=== PATIENT | female | born 1980 | race Caucasian/White ===

== ENCOUNTER 2024-12-03 18:07 | Inpatient (IN) | payer BC, OTHER ==
[~2024-12-03] VITALS: Ht 154.9 cm; Wt 79.3 kg
[2024-12-03] MEDS: HYDROcodone-ACET 7.5/325MG TAB PO ONE (18:30)
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
[2024-12-03 19:16] LABS: Hematocrit 44.0 % (36.0-46.0); Hemoglobin 14.8 g/dL (12.2-16.2); Mean Corpuscular Hemoglobin 28.8 pg (28.0-32.0); Mean Corpuscular Volume 85.5 fL (80.0-100.0); Nucleated Red Blood Cells % 0.0 %
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
[2024-12-03 19:32] LABS: INR 0.97 (0.9-1.15); Prothrombin Time 10.3 sec (9.3-11.8)
[2024-12-03 19:42] LABS: Alanine Aminotransferase 23 U/L (7-40); Albumin 4.3 g/dL (3.2-4.8); Alkaline Phosphatase 67 U/L (46-116); Anion Gap 7 (5-15); BUN/Creatinine Ratio 14.3 (10.0-20.0); Bilirubin, Total 0.3 mg/dL (0.2-1.0); Blood Urea Nitrogen 12 mg/dL (9-23); Calcium 9.1 mg/dL (8.7-10.4); Carbon Dioxide 30 mmol/L (20-31); Chloride 104 mmol/L (98-107); Glucose 122 mg/dL (74-106); Potassium 4.5 mmol/L (3.5-5.1); Sodium 141 mmol/L (136-145); Total Protein 5.8 g/dL (5.7-8.2)
[2024-12-03 23:30] VITALS: PULSE 104; RESP 17; O2SAT 100
[2024-12-04] VITALS (8 sets, daily range): BP systolic 113–157; BP diastolic 68–99; PULSE 72–89; RESP 12–17; TEMP 97.4–98.2; O2SAT 95–98
[2024-12-04] MEDS: fentaNYL CITRATE 100 MCG/2 ML VL IV ONE (00:44)
[2024-12-04] MEDS: SODIUM CHLORIDE 0.9% 1,000 ML IV ONE (00:45)
--- NOTE | 2024-12-04 01:25 | DVH ---
Exam: CT CHST AB PEL WO CON-NO IV/ORAL History: FALL BACK PAIN Comparison Study: None Technique: Multidetector spiral CT of the chest, abdomen and pelvis was performed from lower neck to pubic symphysis without contrast. Axial, coronal and sagittal multiplanar reformats were performed by the technologist on a separate workstation. Radiation Dose : 1. Chest/Abdomen/Pelvis: CTDIvol 21.3 mGy, DLP 6.4 mGy*cm. Findings: Assessment of the vasculature and viscera is limited by lack of IV contrast. Exam is firmer limited b y beam hardening and streak artifact from arms down positioning. Lower neck: Unremarkable. Lungs: No pulmonary contusion or laceration. Mild scarring/atelectasis of the lingula. Central airw ays are clear. Heart/Vascular Structures: No noncontrast evidence of injury. Normal heart size. Lymph Nodes: No obvious adenopathy. Pleura: No effusion or pneumothorax. Liver: Unremarkable. Gallbladder and Biliary Tree: Unremarkable Spleen: Unremarkable. Pancreas: Mild atrophy. Adrenal Glands: Unremarkable. Kidneys: No evidence of injury. Nonobstructing 2 mm stone in the left inferior collecting system. Bladder: No evidence of injury. Bowel: No wall thickening or obstruction. Appendectomy change. Paii-ba-giyeidrw colonic stool burden . Ascites: None. Lymphadenopathy: No obvious adenopathy. Abdominal Wall and Mesentery: No evidence of injury. Vasculature: No noncontrast evidence of injury. Pelvic Organs: Lobular appearance of the anterior uterus, suggesting fibroid or fibroids. Musculoskeletal: No acute fracture. Normal joint alignment. IMPRESSION: 1. No acute traumatic finding of the chest, abdomen, or pelvis within the exam limitations. 2. Nonobstructing left nephrolith. Other incidental findings above.
[2024-12-04] MEDS: KETOROLAC TROMETH 30 MG/ML 1ML VIAL IV ONE (07:56)
[2024-12-04] MEDS ORDERED: LISI-285 PO (09:00)
[2024-12-04] MEDS ORDERED: TRAZ-227 PO (09:00)
[2024-12-04] MEDS ORDERED: ACETAMINOPHEN 325 MG TAB PO PRN (09:00)
[2024-12-04] MEDS ORDERED: SERT-160 PO (09:00)
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
[2024-12-04] MEDS: LISINOPRIL 20 MG TAB PO SCH (11:02)
[2024-12-04] MEDS: hydroCHLOROthiazide 25 MG TAB PO SCH (11:03)
[2024-12-04] MEDS: SERTRALINE HCL 50 MG TAB PO SCH (11:03)
[2024-12-04] MEDS ORDERED: GAB100C PO (11:06)
[2024-12-04] MEDS: HYDROcodone-ACET 5/325MG TAB PO PRN (11:20)
[2024-12-04] MEDS ORDERED: BUPR-60 PO (17:52)
[2024-12-04] MEDS: SODIUM CHLORIDE 0.9% 500 ML IV ONE (21:01)
[2024-12-04] MEDS: DOCUSATE SOD 100 MG CAP PO PRN (21:57)
[2024-12-04] MEDS: GABAPENTIN 100 MG CAP PO SCH (21:57)
[2024-12-05] VITALS (8 sets, daily range): BP systolic 100–161; BP diastolic 58–116; PULSE 69–129; RESP 17–87; TEMP 98.3–98.6; O2SAT 95–98
[2024-12-05 07:01] LABS: Alanine Aminotransferase 16 U/L (7-40); Albumin 3.8 g/dL (3.2-4.8); Alkaline Phosphatase 61 U/L (46-116); Anion Gap 8 (5-15); BUN/Creatinine Ratio 12.0 (10.0-20.0); Blood Urea Nitrogen 9 mg/dL (9-23); Calcium 8.7 mg/dL (8.7-10.4); Carbon Dioxide 27 mmol/L (20-31); Glucose 97 mg/dL (74-106); Potassium 4.1 mmol/L (3.5-5.1); Sodium 142 mmol/L (136-145)
[2024-12-05 07:02] LABS: Bilirubin, Total 0.4 mg/dL (0.2-1.0)
[2024-12-05 07:04] LABS: Chloride 107 mmol/L (98-107); Total Protein 5.5 g/dL (5.7-8.2)
[2024-12-05] MEDS: ONDANSETRON HCL 4 MG/2 ML VIAL IV PRN (09:08)
[2024-12-05 09:25] LABS: Hematocrit 38.2 % (36.0-46.0); Hemoglobin 12.9 g/dL (12.2-16.2); Mean Corpuscular Hemoglobin 28.9 pg (28.0-32.0); Mean Corpuscular Volume 85.1 fL (80.0-100.0); Nucleated Red Blood Cells % 0.0 %
[2024-12-05] MEDS ORDERED: BUPROPION HCL 150 MG PO SCH (10:00)
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
[2024-12-05] MEDS: LORazepam 2MG/ML-1ML VIAL IV ONE ×2 (11:44→12:13)
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
--- NOTE | 2024-12-05 14:51 | DVHDS2 ---
Discharge Summary Date of Admission Dec 04, 2024 at 08:52 Date of Discharge: Dec 05, 2024 Labs/Diagnostic Data: Laboratory Results Test 12/05/24 08:54 12/05/24 05:14 12/03/24 19:03 White Blood Count 9.6 10^3/uL (4.4-10.8) Red Blood Count 4.49 10^6/uL (4.0-5.20) Hemoglobin 12.9 g/dL (12.2-16.2) Hematocrit 38.2 % (36.0-46.0) Mean Corpuscular Volume 85.1 fL (80.0-100.0) Mean Corpuscular Hemoglobin 28.9 pg (28.0-32.0) Mean Corpuscular Hemoglobin Concent 33.9 g/dL (32.0-36.0) Red Cell Distribution Width 14.5 % (11.8-14.3) Platelet Count 274 10^3/uL (140-450) Mean Platelet Volume 7.8 fL (6.9-10.8) Neutrophils (%) (Auto) 66.0 % (37.0-80.0) Lymphocytes (%) (Auto) 22.6 % (10.0-50.0) Monocytes (%) (Auto) 7.6 % (0.0-12.0) Eosinophils (%) (Auto) 3.3 % (0.0-7.0) Basophils (%) (Auto) 0.5 % (0.0-2.0) Neutrophils # (Auto) 6.3 10 ^3/uL (1.6-8.6) Lymphocytes # (Auto) 2.2 10 ^3/uL (0.4-5.4) Monocytes # (Auto) 0.7 10 ^3/uL (0-1.3) Eosinophils # (Auto) 0.3 10 ^3/uL (0-0.8) Basophils # (Auto) 0 10 ^3/uL (0-0.2) Nucleated Red Blood Cells 0.0 % Sodium Level 142 mmol/L (136-145) Potassium Level 4.1 mmol/L (3.5-5.1) Chloride Level 107 mmol/L (98-107) Carbon Dioxide Level 27 mmol/L (20-31) Anion Gap 8 (5-15) Blood Urea Nitrogen 9 mg/dL (9-23) Creatinine 0.75 mg/dL (0.550-1.02) Glomerular Filtration Rate Calc 99 mL/min (>90) BUN/Creatinine Ratio 12.0 (10.0-20.0) Serum Glucose 97 mg/dL (74-106) Calcium Level 8.7 mg/dL (8.7-10.4) Total Bilirubin 0.4 mg/dL (0.2-1.0) Aspartate Amino Transferase (AST) 20 U/L (13-40) Alanine Aminotransferase (ALT) 16 U/L (7-40) Alkaline Phosphatase 61 U/L (46-116) Total Protein 5.5 g/dL (5.7-8.2) Albumin 3.8 g/dL (3.2-4.8) Prothrombin Time 10.3 sec (9.3-11.8) Prothrombin Time INR 0.97 (0.9-1.15) Other Laboratory Tests 12/05/24 08:54 12/05/24 05:14 Brief Hx & Hospital Course: SEE DICTATED NOTE Condition at Discharge: Good Final Diagnosis/Problems List FALL Discharge Disposition: Acute Care Facility Discharge Instruct/Medications Diet: Regular Activity: No Restrictions, As Tolerated Follow Up/Referral: FU WITH [facility] Medications: PER MAR Scheduled Bupropion Hcl (Bupropion Hcl Sr), 1 TAB PO DAILY, (Reported) Gabapentin (Gabapentin), CAP PO TID, (Reported) Lisinopril & Hydrochlorothiazi (Lisinopril/Hydrochlorothi), 1 TAB PO DAILY, (Reported) Sertraline Hcl (Sertraline Hcl), 1 TAB PO DAILY, (Reported) Scheduled PRN Trazodone Hcl (Trazodone Hcl), 2 TAB PO QHSP PRN, (Reported) Discharge Statement: "Patient was advised to return to the ER or call 911 if any headaches, dizziness, shortness of breath, chest pain, abdominal pain, bleeding, fevers, or worsening of medical condition. Patient was counseled about treatment plan, medications, possible side effects, patientverbalized understanding. All questions were answered to the best of my ability. This discharge took greater then 30 minutes in planning, reviewing documentation, counseling the patient, and discussing with other team members." ASSESSMENT ASSESSMENT Assessment FALL Date of Service: Dec 05, 2024 Billing Provider: PATEL FAUSTIN MD Common Visit Codes: [id number]-XGE/OBS DISCH DAY >30min PATEL FAUSTIN MD Dec 05, 2024 14:51
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
[2024-12-05] MEDS: D5W/SOD CHLO 0.9% 1,000 ML IV SCH (15:49)
[2024-12-05] MEDS: MORPHINE SULFATE INJ 2 MG/ml SYRG IV PRN (16:04)
[2024-12-05] MEDS: PANTOPRAZOLE 40 MG/10 ML VIAL INJ IV ONE (16:04)
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
[2024-12-06 01:00] VITALS: BP_SYST 103; BP_SYST 113; BP_DIAS 65; BP_DIAS 71; PULSE 80; PULSE 88; RESP 16; TEMP 98.1; TEMP 98.5; O2SAT 97; O2SAT 98
[2024-12-06 05:00] VITALS: BP 124/69; PULSE 61; RESP 16; TEMP 97.5; O2SAT 96
[2024-12-06 08:00] VITALS: RESP 18
[2024-12-06 09:00] VITALS: BP 109/67; PULSE 62; RESP 20; TEMP 97.6; O2SAT 96
[2024-12-06] MEDS: PANTOPRAZOLE 40 MG/10 ML VIAL INJ IV SCH (09:03)
[2024-12-06] MEDS: LORazepam 2MG/ML-1ML VIAL IV PRN (09:21)
[2024-12-06 09:41] LABS: Hematocrit 38.4 % (36.0-46.0); Hemoglobin 12.8 g/dL (12.2-16.2); Mean Corpuscular Hemoglobin 28.6 pg (28.0-32.0); Mean Corpuscular Volume 85.5 fL (80.0-100.0); Nucleated Red Blood Cells % 0.1 %
[2024-12-06 09:44] LABS: Anion Gap 7 (5-15); Carbon Dioxide 29 mmol/L (20-31); Chloride 105 mmol/L (98-107); Potassium 3.9 mmol/L (3.5-5.1); Sodium 141 mmol/L (136-145)
[2024-12-06 09:45] LABS: Calcium 9.3 mg/dL (8.7-10.4)
[2024-12-06 09:50] LABS: BUN/Creatinine Ratio 13.0 (10.0-20.0); Blood Urea Nitrogen 10 mg/dL (9-23)
[2024-12-06 09:57] LABS: Glucose 119 mg/dL (74-106)
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
[2024-12-06 13:00] VITALS: BP 127/76; PULSE 76; RESP 20; TEMP 97.6; O2SAT 99
[2024-12-06 16:29] VITALS: BP 152/73; PULSE 76; RESP 16; TEMP 36.4; O2SAT 96
== END 2024-12-06 16:47 | disposition short-term general hospital (02) | DRG 914 ==
LOC: EDUNIT# 18:07 → ER 18:07 → EDBD 18:07 → OVERFLOW 12-04 08:52 → CENTRAL 12-04 16:09
PROVIDERS: ADMIT Family Medicine; ATTEND Family Medicine
DX: S09.8XXA Other specified injuries of head, initial encounter (principal); S19.89XA Other specified injuries of other specified part of neck, initial encounter; F32.A Depression, unspecified; E66.9 Obesity, unspecified; Z68.31 Body mass index [BMI] 31.0-31.9, adult; I10 Essential (primary) hypertension; F41.0 Panic disorder [episodic paroxysmal anxiety]; Z91.81 History of falling; Z90.49 Acquired absence of other specified parts of digestive tract; V89.2XXA Person injured in unspecified motor-vehicle accident, traffic, initial encounter; Y93.89 Activity, other specified; Y92.488 Other paved roadways as the place of occurrence of the external cause; Y99.8 Other external cause status
CPT/HCPCS: 36415; 70450; 70540; 70551; 71250; 72125; 73090; 73130; 74176; 80048; 80053; 85025; 85610; 96361; 96374; 97110; 97116; 97163; 97530; G0378; J1885; J2405; J2470